=== PATIENT | female | born 1950 | race African-American/Black ===

== ENCOUNTER → 2016-07-14 | Outpatient (CLI) | payer OTHER | LOC: RAD 14:51 | DX: Z12.31 Encounter for screening mammogram for malignant neoplasm of breast (principal) ==

== ENCOUNTER → 2018-09-03 | Outpatient (CLI) | payer OTHER | LOC: BC 14:58 | DX: Z12.31 Encounter for screening mammogram for malignant neoplasm of breast (principal) ==